=== PATIENT | female | born 1995 | race Caucasian/White ===

== ENCOUNTER 2018-09-19 11:41 | Emergency (ER) | payer BC, OTHER ==
--- NOTE | 2018-09-19 12:29 | ER ---
Nurse's Notes [facility] Name: Christine Cherry Age: 23 yrs Sex: Female : 1995 Arrival Date: 09/19/2018 Time: 11:47 Bed 11 Private MD: Diagnosis: Influenza due to identified novel influenza A virus Presentation: 09/19 11:51 Presenting complaint: Patient states: LMP- 05/14/18; runny nose, fever, headache, body hj ache, cough, that started last Thursday; T- max-100.3; took tylenol, last night around 6pm; reports sore throat;. Transition of care: patient was not received from another setting of care. Onset of symptoms was September 19, 2018. Risk Assessment: Do you want to hurt yourself or someone else? Patient reports no desire to harm self or others. Initial Sepsis Screen: Does the patient meet any 2 criteria? No. Patient's initial sepsis screen is negative. Does the patient have a suspected source of infection? No. Patient's initial sepsis screen is negative. Care prior to arrival: None. 11:51 Method Of Arrival: Ambulatory 11:51 Acuity: MADI 4 Triage Assessment: 11:54 General: Appears in no apparent distress. uncomfortable, Behavior is calm, cooperative, hj appropriate for age. Pain: Complains of pain in body Pain currently is 8 out of 10 on a pain scale. 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 - Social history:: Smoking status: Patient/guardian denies using tobacco, Patient/guardian denies using alcohol. - Ebola Screening: : Patient negative for fever greater than or equal to 101.5 degrees Fahrenheit, and additional compatible Ebola Virus Disease symptoms Patient denies exposure to infectious person Patient denies travel to an Ebola-affected area in the 21 days before illness onset. Screenin:54 Abuse screen: Denies threats or abuse. Denies injuries from another. Nutritional hj screening: No deficits noted. Tuberculosis screening: No symptoms or risk factors identified. Fall Risk None identified. Assessment: 12:15 General: Appears uncomfortable, ill, Behavior is calm, cooperative, Reports chills for ss 1-2 days, fever for 1-2 days, feeling ill for 1-2 days, fatigue for 1-2 days. Neuro: Level of Consciousness is awake, alert, obeys commands, Oriented to person, place, time, situation. Cardiovascular: Capillary refill < 3 seconds is brisk in bilateral fingers. Respiratory: Reports cough that is Airway is patent Respiratory effort is even, unlabored, Respiratory pattern is regular, symmetrical. EENT: Oral mucosa is moist. Derm: Skin is intact, is healthy with good turgor, Skin is pink, warm \T\ dry. normal. Musculoskeletal: Circulation, motion, and sensation intact. Range of motion: intact in all extremities, Swelling absent. Vital Signs: 11:54 BP 106 / 69; Pulse 107; Resp 18; Temp 99.3(O); Pulse Ox 100% on R/A; Weight 63.05 kg; hj Height 5 ft. 1 in. (154.94 cm); Pain 8/10; 11:54 Body Mass Index 26.26 (63.05 kg, 154.94 cm) ED Course: 11:47 Patient arrived in ED. mr 11:48 Nigel Gosia, [facility] kb 11:48 Eliot Johnson MD is Attending Physician. kb 11:53 Triage completed. hj 11:54 Arm band placed on right wrist. hj 11:56 Patient has correct armband on for positive identification. Bed in low position. Call light in reach. Side rails up X 1. Adult w/ patient. 12:07 Strep Sent. hj 12:07 Flu Sent. hj 12:37 Tesha Arreola, MOISÉS is Primary Nurse. ss 12:44 No provider procedures requiring assistance completed. Patient did not have IV access ss during this emergency room visit. Administered Medications: 12:37 Drug: Tamiflu 75 mg Route: PO; ss 12:45 Follow up: Response: Medication administered at discharge. ss Outcome: 12:29 Discharge ordered by . kb 12:44 Discharged to home ambulatory, with significant other. ss 12:44 Condition: good 12:44 Discharge instructions given to patient, family, Instructed on discharge instructions, follow up and referral plans. medication usage, Demonstrated understanding of instructions, follow-up care, medications, Prescriptions given X 1. 12:45 Patient left the ED. ss Signatures: Gosia Manning, GRACIELA ERICP-Juan Ramon Maria Esther Orourke mr Tesha Arreola RN RN ss Darin Denny RN RN Corrections: (The following items were deleted from the chart) 11:56 11:54 Pulse 107bpm; Resp 18bpm; Pulse Ox 100% RA; Temp 99.3F Oral; 63.05 kg; Height 5 hj ft. 1 in.; BMI: 26.2; Pain 8/10; hj
--- NOTE | 2018-09-19 12:29 | EDPHYS ---
Physician Documentation [facility] Name: Christine Cherry Age: 23 yrs Sex: Female : 1995 Arrival Date: 09/19/2018 Time: 11:47 Bed 11 Private MD: ED Physician Eliot Johnson HPI: 09/19 12:27 This 23 yrs old Female presents to ER via Ambulatory with complaints of Flu kb Symptoms. 12:27 The patient or guardian reports cough, that is intermittent, described as mild, with no kb sputum, flu symptoms, arthralgias, low-grade fever, myalgias, no appetite. Onset: The symptoms/episode began/occurred yesterday. Severity of symptoms: At their worst the symptoms were moderate, in the emergency department the symptoms are unchanged. Modifying factors: The symptoms are alleviated by nothing, the symptoms are aggravated by nothing. Associated signs and symptoms: Pertinent positives: fever, rhinorrhea, sore throat, Pertinent negatives: chest pain, diarrhea, ear ache, nausea, vomiting. The patient has not experienced similar symptoms in the past. The patient has not recently seen a physician. 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 - Social history:: Smoking status: Patient/guardian denies using tobacco, Patient/guardian denies using alcohol. - Ebola Screening: : Patient negative for fever greater than or equal to 101.5 degrees Fahrenheit, and additional compatible Ebola Virus Disease symptoms Patient denies exposure to infectious person Patient denies travel to an Ebola-affected area in the 21 days before illness onset. ROS: 12:28 Neck: Negative for injury, pain, and swelling, Cardiovascular: Negative for chest pain, kb palpitations, and edema, Abdomen/GI: Negative for abdominal pain, nausea, vomiting, diarrhea, and constipation, Back: Negative for injury and pain, MS/Extremity: Negative for injury and deformity, Skin: Negative for injury, rash, and discoloration, Neuro: Negative for headache, weakness, numbness, tingling, and seizure. 12:28 Constitutional: Positive for body aches, chills, fatigue, fever, malaise, Negative for poor PO intake, weight loss. 12:28 ENT: Positive for sore throat. 12:28 Respiratory: Positive for cough, Negative for dyspnea on exertion, hemoptysis, orthopnea, pleurisy, shortness of breath, sputum production, wheezing. Exam: 12:28 Constitutional: This is a well developed, well nourished patient who is awake, alert, kb and in no acute distress. Head/Face: Normocephalic, atraumatic. ENT: Nares patent. No nasal discharge, no septal abnormalities noted. Tympanic membranes are normal and external auditory canals are clear. Oropharynx with no redness, swelling, or masses, exudates, or evidence of obstruction, uvula midline. Mucous membranes moist. Neck: Trachea midline, no thyromegaly or masses palpated, and no cervical lymphadenopathy. Supple, full range of motion without nuchal rigidity, or vertebral point tenderness. No Meningismus. Chest/axilla: Normal chest wall appearance and motion. Nontender with no deformity. No lesions are appreciated. Cardiovascular: Regular rate and rhythm with a normal S1 and S2. No gallops, murmurs, or rubs. Normal PMI, no JVD. No pulse deficits. Respiratory: Lungs have equal breath sounds bilaterally, clear to auscultation and percussion. No rales, rhonchi or wheezes noted. No increased work of breathing, no retractions or nasal flaring. Abdomen/GI: Soft, non-tender, with normal bowel sounds. No distension or tympany. No guarding or rebound. No evidence of tenderness throughout. Skin: Warm, dry with normal turgor. Normal color with no rashes, no lesions, and no evidence of cellulitis. MS/ Extremity: Pulses equal, no cyanosis. Neurovascular intact. Full, normal range of motion. Neuro: Awake and alert, GCS 15, oriented to person, place, time, and situation. Cranial nerves II-XII grossly intact. Motor strength 5/5 in all extremities. Sensory grossly intact. Cerebellar exam normal. Normal gait. Vital Signs: 11:54 BP 106 / 69; Pulse 107; Resp 18; Temp 99.3(O); Pulse Ox 100% on R/A; Weight 63.05 kg; hj Height 5 ft. 1 in. (154.94 cm); Pain 8/10; 11:54 Body Mass Index 26.26 (63.05 kg, 154.94 cm) MDM: 12:11 Patient medically screened. kb 12:27 Data reviewed: vital signs, nurses notes. Data interpreted: Pulse oximetry: on room air kb is 100 %. Interpretation: normal. Counseling: I had a detailed discussion with the patient and/or guardian regarding: the historical points, exam findings, and any diagnostic results supporting the discharge/admit diagnosis, lab results, the need for outpatient follow up, a family practitioner, to return to the emergency department if symptoms worsen or persist or if there are any questions or concerns that arise at home. 09/19 11:56 Order name: Flu; Complete Time: 12:22 09/19 11:56 Order name: Strep; Complete Time: 12:22 09/19 12:18 Order name: Throat Culture EDMS Administered Medications: 12:37 Drug: Tamiflu 75 mg Route: PO; 12:45 Follow up: Response: Medication administered at discharge. Disposition: 09/20 07:32 Co-signature as Attending Physician, Eliot Johnson MD I agree with the assessment and cristal plan of care. Disposition: 09/19/18 12:29 Discharged to Home. Impression: Influenza due to identified novel influenza A virus. - Condition is Stable. - Discharge Instructions: Influenza, Adult, [id number]. - Prescriptions for Tamiflu 75 mg Oral Capsule - take 1 capsule by ORAL route every 12 hours for 5 days; 10 capsule. - Medication Reconciliation Form, Thank You Letter, Antibiotic Education, Prescription Opioid Use, Work release form form. - Follow up: Emergency Department; When: As needed; Reason: Worsening of condition. Follow up: Private Physician; When: 2 - 3 days; Reason: Recheck today's complaints, Continuance of care, Re-evaluation by your physician. Signatures: Dispatcher [employer] EDMS Gosia Manning, GRACIELA CAMARGO-Eliot Olsen MD MD cha Smirch, Shelby, RN RN Darin Denny RN RN Corrections: (The following items were deleted from the chart) 09/19 12:45 12:29 09/19/2018 12:29 Discharged to Home. Impression: Influenza due to identified ss novel influenza A virus. Condition is Stable. Forms are Medication Reconciliation Form, Thank You Letter, Antibiotic Education, Prescription Opioid Use. Follow up: Emergency Department; When: As needed; Reason: Worsening of condition. Follow up: Private Physician; When: 2 - 3 days; Reason: Recheck today's complaints, Continuance of care, Re-evaluation by your physician. kb
[2018-09-19] MEDS ORDERED: OSELTAMIVIR 75 MG CAP ONE (12:45)
[2018-09-19 12:50] VITALS: BP 106/69; TEMP 99.3; O2SAT 100
== END 2018-09-19 12:45 | disposition home or self-care (01) ==
LOC: ER 11:41
DX: J09.X2 Influenza due to identified novel influenza A virus with other respiratory manifestations (principal)
CPT/HCPCS: 87070; 87081; 87804; 99283